=== PATIENT | male | born 1960 | race Caucasian/White ===

== ENCOUNTER 2024-07-01 15:10 | Inpatient (IN) | payer BC, SELFPAY ==
[2024-07-01] VITALS (12 sets, daily range): BP systolic 93–150; BP diastolic 68–96; BMI 26.1; BMI 25.6
--- NOTE | 2024-07-01 10:56 | ED.GENMED ---
History of Present Illness
General
Chief Complaint: Abdominal Pain
Time Seen by Provider: 07/01/24 10:44
History of Present Illness
History of Present Illness:
63-year-old male with history of Crohn's disease s/p bowel resection on Humira and history of diverticulitis presenting for lower abdominal pain. Patient reports symptoms have been ongoing for the past week, worsened in the past few days. He has
not had a bowel movement in 3 days. Reports history of a bowel perforation as well, and additional surgical history includes hernia repair. Denies fever, nausea, vomiting. Denies chest pain or difficulty breathing. He feels that his symptoms are
similar to prior episodes of diverticulitis. Denies additional acute medical complaints.
Phy Exam
Physical Exam
Physical Exam:
General: Well-appearing, no clinical signs of dehydration, nontoxic and in no acute distress
HEENT: protecting airway
Neck: appears supple
CV: Normal heart rate, regular rhythm, no evidence of cyanosis
Resp: No accessory muscle use, no increased work of breathing, lungs clear to auscultation bilaterally
Abd: Soft and non-distended, generalized tenderness to lower abdomen, right and left lower quadrant
Extremities: No deformities, no swelling, no erythema, pulses and sensation intact
Neuro: alert, no focal neurologic deficit
: deferred
Rectal: deferred
Psych: Normal affect
Skin: Intact
Course
Orders/Labs/Results
Orders:
Orders
07/01/24 10:56
CT Abd/pelvis W Iv Cont Urgent
Comment:
Reason For Exam: lower abd pain, hx divertic and crohns
Ketorolac [Toradol] 15 mg IV NOW STA
07/01/24 11:18
Complete Blood Count/With Diff Urgent
Comprehensive Metabolic Panel Urgent
Lactic Acid Urgent
Lipase Urgent
07/01/24 13:08
HYDROmorphone [Dilaudid] 1 mg IV NOW STA
07/01/24 13:42
Piperacillin/Tazo 4.5 Gram [Zosyn] 4.5 gram in 100 ml IV NOW
Abnormal Lab Results
07/01/24
11:18
WBC 12.8 H 10^3/uL
(4.8-10.8)
RBC 4.26 L 10^6/uL
(4.70-6.10)
MCH 33.6 H pg
(27.0-31.0)
Absolute Neuts (auto) 9.1 H 10^3/uL
(1.4-6.5)
Absolute Monos (auto) 0.7 H 10^3/uL
(0.1-0.6)
07/01/24 11:18
07/01/24 11:18
Vital Signs
Initial and Last Documented VS:
Initial Vital Signs
Temp Pulse Resp BP Pulse Ox
99.7 F 67 16 141/96 95
07/01/24 10:19 07/01/24 10:19 07/01/24 10:19 07/01/24 10:19 07/01/24 10:19
Last Documented Vital Signs
Temp Pulse Resp BP Pulse Ox
99.7 F 68 11 150/82 98
07/01/24 10:19 07/01/24 13:05 07/01/24 13:05 07/01/24 13:05 07/01/24 13:05
MDM/Problems Addressed
MDM/Problems Addressed:
63-year-old male with history of Crohn's disease on Humira and history of diverticulitis presenting for lower abdominal pain and constipation. Vital signs are normal.
On exam, patient is resting comfortably, no acute distress, nontoxic. Generalized tenderness to lower abdomen. Given patient's history, concern for acute bowel pathology such as acute diverticulitis versus Crohn's flare. For this reason we will
obtain laboratory analysis and CT abdominal imaging. Toradol administered for symptoms
13:50 -labs show leukocytosis, consistent with underlying infection. CT shows acute diverticulitis, consistent with symptoms. Patient in moderate pain, requiring IV pain medication. Patient does not feel given his present level of pain that he
can go home with his symptoms. For this reason, will plan for IV antibiotics and pain control. Patient agreeable to plan.
*Critical Care Note
Total Time (30-74mins, 75-104mins- exclusive of procedures): Not Applicable
ED Attending Note
-
Portions of this chart may have been created with voice recognition software.� Occasional wrong word or��sound alike� substitutions may have occurred due to the inherent limitations of voice recognition software.
Discharge Plan
Departure
Referrals:
Rochelle Velázquez, DO [Family Provider] -
Interventions
Interventions:
*Risk Screen - Suicide Last Done: 07/01/24 10:19
*General Assessment Last Done: 07/01/24 11:10
*Neglect/Abuse Screening Last Done: 07/01/24 10:19
ED- Fall Risk Assessment Last Done: 07/01/24 11:10
OV-Rhdipu-Zekikrsbce Assessment Last Done: 07/01/24 11:10
Discharge Date and Time
Print Language: IRISH
[2024-07-01] MEDS: TORADOL 15 MG IV (11:14)
[2024-07-01 11:29] LABS: % Basophils 0.4 % (0-2); % Eosinophils 1.4 % (0-6); % Immature Granulocytes 0.2 % (0-0.5); % Lymphocytes 21.3 % (20.5-51.1); % Monocytes 5.5 % (1.7-9.3); % Neutrophils 71.2 % (42.2-75.2); Absolute Basophils 0.1 10^3/uL (0-0.2); Absolute Eosinophils 0.2 10^3/uL (0-0.7); Absolute Lymphocytes 2.7 10^3/uL (1.2-3.4); Absolute Monocytes 0.7 10^3/uL (0.1-0.6); Absolute Neutrophils 9.1 10^3/uL (1.4-6.5); Hematocrit 39.5 % (39.0-52.0); Hemoglobin 14.3 g/dL (13.0-18.0); Mean Corp Hgb Conc. 36.2 g/dL (33.0-37.0); Mean Corpuscular Hgb 33.6 pg (27.0-31.0); Mean Corpuscular Volume 92.7 fL (80.0-94.0); Mean Platelet Volume 9.8 fL (7.4-10.4); Nucleated Red Blood Cells % 0 % (-); Platelet Count 398 10^3/uL (130-400); Red Blood Cell Count 4.26 10^6/uL (4.70-6.10); Red Cell Dist. Width 11.9 % (11.5-14.5); White Blood Cell Count 12.8 10^3/uL (4.8-10.8)
[2024-07-01 11:40] LABS: Lactic Acid 0.9 mmol/L (0.7-2.0)
[2024-07-01 11:41] LABS: ALT (SGPT) 31 U/L (0-50); AST (SGOT) 30 U/L (17-59); Albumin 4.4 g/dl (3.5-5.0); Alkaline Phosphatase 68 U/L (38-126); Blood Urea Nitrogen 9 mg/dl (9-20); Calcium 9.7 mg/dl (8.4-10.2); Carbon Dioxide 28 mmol/L (22-30); Chloride 99 mmol/L (98-107); Estimated Creatinine Clearance 86 ml/min; Glucose 96 mg/dl (70-99); Lipase 56 U/L (23-300); Potassium 3.6 mmol/L (3.5-5.1); Sodium 140 mmol/L (135-145); Total Bilirubin 0.5 mg/dl (0.2-1.3); Total Protein 7.5 g/dl (6.3-8.2); eGFR > 60.00
[2024-07-01] MEDS: DILAUDID 1 MG IV (13:11)
[2024-07-01] MEDS: ZOSYN 100 IV ×2 (14:07→19:57)
--- NOTE | 2024-07-01 14:39 | HPS.HSE ---
Family Physician
-
Family Physician: Rochelle Velázquez
Chief Complaint
-
Abdominal pain
History of Present Illness
63-year-old man with history of:
Crohn's disease s/p bowel resection on Humira
history of diverticulitis
presents with lower abdominal pain. He reports the symptoms have been ongoing for the past week, and have worsened in the past few days. He has not had a bowel movement in 3 days. He reports a history of a bowel perforation as well, and his
surgical history includes hernia repair. He denies fever, nausea, vomiting, chest pain or difficulty breathing. He feels that his symptoms are similar to prior episodes of diverticulitis. He denies additional acute medical complaints. In the ED,
after having had pain medicine, he felt much better, and was comfortable during my exam.
Medical History
Past Medical History
Past Medical History: Reports Other
Additional Past Medical History:
GERD
Diverticulitis
Chron's disease
Essential HTN
Past Surgical History: Reports Other
Additional Past Surgical History:
hernia surgery
Social History
Tobacco: Non-smoker
Alcohol: Daily
Drug: None
Personal:
Living: With Family
Family History
Family History: Not pertinent
Allergies / Home Medications
Allergies reflects when Allergies were last updated in [employer].
Home Medications with original date entered in [employer]
Allergy/Medication List:
Allergies
Allergy/AdvReac Type Severity Reaction Status Date / Time
No Known Allergies Allergy Unverified 07/01/24 10:19
Home Medications
acetaminophen 325 mg tablet 325 mg PO DAILYPRN PRN mild pain 07/01/24
adalimumab-ryvk 40 mg/0.4 mL subcutaneous auto-injector kit 40 mg SC MO 07/01/24
famotidine 20 mg tablet 20 mg PO HS 07/01/24
indapamide 2.5 mg tablet 2.5 mg PO HS 07/01/24
omeprazole 40 mg capsule,delayed release 40 mg PO HS 07/01/24
propranolol 10 mg tablet 10 mg PO DAILYPRN PRN tremors 07/01/24
psyllium 1 packet PO HSPRN PRN constipation 07/01/24
therapeutic multivitamin 1 tab PO DAILY 07/01/24
Review of Systems
-
History Source: Patient
A 12 point ROS was completed and negative except as noted: Yes
Physical Exam
Vital Signs
Vital Signs
Temp Pulse Resp BP Pulse Ox
98.4 F 69 16 136/75 98
07/01/24 14:00 07/01/24 14:00 07/01/24 14:00 07/01/24 14:00 07/01/24 14:00
Physical Exam
General: Well Developed, Well Nourished, No Apparent Distress, Comfortable and Conversant
HEENT: NormoCephalic, Moist mucous membranes, Nose Appears Normal and Ears Appear Normal
Respiratory: Clear
Cardiac: S1/S2 and Regular Rhythm
GI: Soft, Non Tender and Non Distended
Musculoskeletal: No Clubbing, No Cyanosis and No Edema
Skin: Warm and Dry; No Rash, Jaundice or Ulcers
Neuro: Awake, Alert, Oriented and AO x 3
Psych: Calm
Laboratory Results
-
07/01/24 11:18
07/01/24 11:18
Laboratory Results
Lactic Acid 0.9 mmol/L (0.7-2.0) 07/01/24 11:18
Total Bilirubin 0.5 mg/dl (0.2-1.3) 07/01/24 11:18
AST 30 U/L (17-59) 07/01/24 11:18
ALT 31 U/L (0-50) 07/01/24 11:18
Alkaline Phosphatase 68 U/L (38-126) 07/01/24 11:18
Lipase 56 U/L (23-300) 07/01/24 11:18
Data Reviewed
-
Lab Data: Labs Reviewed by me
Impression/Plan
-
IMPRESSION:
63 man with a h/o diverticulitis, her with symptoms c/w diverticulitis. CT and labs:
WBC 12.8
Limited in evaluation without oral contrast, thickening of the wall of the distal sigmoid colon with accompanying diverticulosis most likely representing acute diverticulitis.
No intestinal obstruction or free air.
PLAN:
1. Diverticulitis. No free air.
IV antibiotics
Sips of Clear liquids, otherwise NPO
Pain meds as required
2. Essential HTN
Continue home meds
Full code
VCD for DVTp
[2024-07-01] MEDS: NSS 1000 IV (16:25)
[2024-07-01] MEDS: TYLENOL 325 MG PO (16:25)
--- NOTE | 2024-07-01 16:57 | PTCARENOTE ---
pt arrived to floor from ED, walked to bed, alert and oriented x 3, present, vitals taken, pt stable
[2024-07-01] MEDS: DILAUDID 0.5 MG IV (20:00)
[2024-07-01] MEDS: PROTONIX 40 MG PO (21:12)
[2024-07-01] MEDS: LOZOL 2.5 MG PO (21:15)
[2024-07-01] MEDS: PEPCID 20 MG PO (21:16)
[2024-07-02] MEDS: ZOSYN 100 IV ×4 (02:14→21:25)
[2024-07-02] MEDS: NSS 1000 IV ×2 (03:58→14:37)
[2024-07-02] MEDS: DILAUDID 0.5 MG IV (03:58)
[2024-07-02 07:09] LABS: Hematocrit 35.1 % (39.0-52.0); Hemoglobin 12.4 g/dL (13.0-18.0); Mean Corp Hgb Conc. 35.3 g/dL (33.0-37.0); Mean Corpuscular Hgb 32.8 pg (27.0-31.0); Mean Corpuscular Volume 92.9 fL (80.0-94.0); Mean Platelet Volume 9.6 fL (7.4-10.4); Platelet Count 357 10^3/uL (130-400); Red Blood Cell Count 3.78 10^6/uL (4.70-6.10); Red Cell Dist. Width 11.9 % (11.5-14.5); White Blood Cell Count 8.2 10^3/uL (4.8-10.8)
[2024-07-02 07:30] LABS: Blood Urea Nitrogen 9 mg/dl (9-20); Calcium 8.6 mg/dl (8.4-10.2); Carbon Dioxide 26 mmol/L (22-30); Chloride 102 mmol/L (98-107); Estimated Creatinine Clearance 78 ml/min; Glucose 93 mg/dl (70-99); Potassium 3.4 mmol/L (3.5-5.1); Sodium 140 mmol/L (135-145); eGFR > 60.00
[2024-07-02 07:33] LABS: Magnesium 2.2 mg/dl (1.6-2.3)
[2024-07-02 07:50] VITALS: BP 115/74
[2024-07-02] MEDS: KCL 20 MEQ PO (09:34)
--- NOTE | 2024-07-02 13:05 | W.PN.HOSP.TC ---
Today's Communication/Plan
-
Monitor vital signs see plan
Pain control
Start clears
Continue with antibiotic
Replete potassium
Assessment / Plan
Assessment / Plan
General: Well Developed, Well Nourished, No Apparent Distress, Comfortable and Conversant
HEENT: NormoCephalic, Moist mucous membranes,
Respiratory: Clear
Cardiac: S1/S2 and Regular Rhythm
GI: Soft, Non Tender and Non Distended
Musculoskeletal:No Edema
Skin: Warm and Dry; No Rash, Jaundice or Ulcers
Neuro: Awake, Alert, Oriented and AO x 3
Psych: Calm
Acute diverticulitis
Continue with antibiotics
Currently feeling better, start clears
Pain control
Will need colonoscopy in 4 to 6 weeks, patient already has GI follow-up
Hypokalemia
Replete
History of Crohn's disease status with history of perforation status post surgery
On adalimumab
GERD
Essential hypertension
DVT prophylaxis
lovenox
Full code
Anticipated Discharge: Within 24 hours
Subjective/Interval History
-
Date of Service: July 02, 2024
mild pain
Objective Data
-
Labs:
Laboratory Results
07/02/24
06:39
WBC 8.2
Hgb 12.4 L
Hct 35.1 L
Plt Count 357
Sodium 140
Potassium 3.4 L
Chloride 102
Carbon Dioxide 26
BUN 9
Creatinine 1.0
Glucose 93
Calcium 8.6
Vital Signs:
Vital Signs
Temp Pulse Resp BP Pulse Ox
97.9 F 71 16 115/74 96
07/02/24 07:50 07/02/24 07:50 07/02/24 07:50 07/02/24 07:50 07/02/24 07:50
I&O
07/01/24 07/02/24 07/03/24
06:59 06:59 06:59
Intake Total 480 / 480
Balance 480 / 480
[2024-07-02 15:30] LABS: Hepatitis C Antibody Negative (Negative)
[2024-07-02 16:00] VITALS: BP 127/80
[2024-07-02] MEDS: LOVENOX 40 MG SC (17:24)
[2024-07-02] MEDS: NON-FORMULARY ITEM 40 MG SC (22:40)
[2024-07-02] MEDS: PROTONIX 40 MG PO (22:42)
[2024-07-02] MEDS: PEPCID 20 MG PO (22:42)
[2024-07-02] MEDS: LOZOL 2.5 MG PO (22:43)
[2024-07-02 23:03] VITALS: BP 127/84
[2024-07-03] MEDS: ZOSYN 100 IV ×4 (01:40→20:37)
[2024-07-03] MEDS: NSS 1000 IV ×3 (01:41→22:08)
[2024-07-03 08:03] VITALS: BP 115/77
[2024-07-03 08:47] LABS: Blood Urea Nitrogen 6 mg/dl (9-20); Calcium 8.9 mg/dl (8.4-10.2); Carbon Dioxide 25 mmol/L (22-30); Chloride 104 mmol/L (98-107); Estimated Creatinine Clearance 86 ml/min; Glucose 94 mg/dl (70-99); Potassium 3.9 mmol/L (3.5-5.1); Sodium 142 mmol/L (135-145); eGFR > 60.00
[2024-07-03 08:56] LABS: % Basophils 0.7 % (0-2); % Eosinophils 4.7 % (0-6); % Immature Granulocytes 0.2 % (0-0.5); % Lymphocytes 41.9 % (20.5-51.1); % Monocytes 9.2 % (1.7-9.3); % Neutrophils 43.3 % (42.2-75.2); Absolute Eosinophils 0.2 10^3/uL (0-0.7); Absolute Lymphocytes 1.9 10^3/uL (1.2-3.4); Absolute Monocytes 0.4 10^3/uL (0.1-0.6); Absolute Neutrophils 1.9 10^3/uL (1.4-6.5); Hematocrit 37.9 % (39.0-52.0); Hemoglobin 12.7 g/dL (13.0-18.0); Mean Corp Hgb Conc. 33.5 g/dL (33.0-37.0); Mean Corpuscular Hgb 32.4 pg (27.0-31.0); Mean Corpuscular Volume 96.7 fL (80.0-94.0); Mean Platelet Volume 9.6 fL (7.4-10.4); Nucleated Red Blood Cells % 0 % (-); Platelet Count 369 10^3/uL (130-400); Red Blood Cell Count 3.92 10^6/uL (4.70-6.10); White Blood Cell Count 4.5 10^3/uL (4.8-10.8)
--- NOTE | 2024-07-03 13:43 | W.PN.HOSP.TC ---
Today's Communication/Plan
-
Monitor vital signs
see plan
Advance diet to fulls
Continue antibiotics
Assessment / Plan
Assessment / Plan
General: Well Developed, Well Nourished, No Apparent Distress, Comfortable and Conversant
HEENT: NormoCephalic, Moist mucous membranes,
Respiratory: Clear
Cardiac: S1/S2 and Regular Rhythm
GI: Soft, Non Tender and Non Distended
Musculoskeletal:No Edema
Skin: Warm and Dry; No Rash, Jaundice or Ulcers
Neuro: Awake, Alert, Oriented and AO x 3
Psych: Calm
Acute diverticulitis
Continue with antibiotics
Currently feeling better, advance to fulls
Pain control
Will need colonoscopy in 4 to 6 weeks, patient already has GI follow-up
Hypokalemia
Replete
History of Crohn's disease status with history of perforation status post surgery
On adalimumab
GERD
Essential hypertension
DVT prophylaxis
lovenox
Full code
Anticipated Discharge: Within 24 hours
Subjective/Interval History
-
Date of Service: July 03, 2024
denies pain
Objective Data
-
Labs:
Laboratory Results
07/03/24
07:00
WBC 4.5 L
Hgb 12.7 L
Hct 37.9 L
Plt Count 369
Sodium 142
Potassium 3.9
Chloride 104
Carbon Dioxide 25
BUN 6 L
Creatinine 0.9
Glucose 94
Calcium 8.9
Vital Signs:
Vital Signs
Temp Pulse Resp BP Pulse Ox
97.8 F 64 17 115/77 97
07/03/24 08:03 07/03/24 08:03 07/03/24 08:03 07/03/24 08:03 07/03/24 08:03
I&O
07/02/24 07/03/24 07/04/24
06:59 06:59 06:59
Intake Total 2940 / 2940
Balance 2940 / 2940
[2024-07-03 15:05] VITALS: BP 119/76
--- NOTE | 2024-07-03 16:31 | CM ---
Reviewed chart, met with patient to obtain information for assessment. Patient stated that he lives with his in a two story home with two steps to enter. He described himself as independent with his ADLs, personal care, bathing and dressing. He
can do financial dealers, cooking, cleaning and laundry. He drives and can get himself to all of his appointments and does his own shopping. Patient is still employed.
He denied any DME at home.
He has had VN in the distant past through [employer].
He has not been to a SNF.
Patient has a prescription plan and uses, [facility] in [place] for all of his medications.
His PCP is, Rochelle eVlázquez.
Patient stated that functionally he feels that he is at baseline and does not think he will have any discharge needs.
Plan: Case management will continue to follow and assist with discharge planning. Home when stable.
[2024-07-03] MEDS: LOVENOX 40 MG SC (17:17)
[2024-07-03] MEDS: LOZOL 2.5 MG PO (22:05)
[2024-07-03] MEDS: PROTONIX 40 MG PO (22:09)
[2024-07-03] MEDS: PEPCID 20 MG PO (22:09)
[2024-07-03 23:00] VITALS: BP 132/79
[2024-07-04] MEDS: ZOSYN 100 IV ×2 (03:21→08:50)
[2024-07-04 07:37] VITALS: BP 128/70
[2024-07-04 07:47] LABS: % Basophils 1.2 % (0-2); % Eosinophils 4.7 % (0-6); % Lymphocytes 47.4 % (20.5-51.1); % Monocytes 9.2 % (1.7-9.3); % Neutrophils 37.5 % (42.2-75.2); Absolute Basophils 0.1 10^3/uL (0-0.2); Absolute Eosinophils 0.2 10^3/uL (0-0.7); Absolute Monocytes 0.4 10^3/uL (0.1-0.6); Absolute Neutrophils 1.6 10^3/uL (1.4-6.5); Hematocrit 38.2 % (39.0-52.0); Hemoglobin 13.2 g/dL (13.0-18.0); Mean Corp Hgb Conc. 34.6 g/dL (33.0-37.0); Mean Corpuscular Hgb 33.2 pg (27.0-31.0); Mean Platelet Volume 9.7 fL (7.4-10.4); Nucleated Red Blood Cells % 0 % (-); Platelet Count 380 10^3/uL (130-400); Red Blood Cell Count 3.98 10^6/uL (4.70-6.10); Red Cell Dist. Width 11.9 % (11.5-14.5); White Blood Cell Count 4.2 10^3/uL (4.8-10.8)
[2024-07-04 08:08] LABS: Blood Urea Nitrogen 6 mg/dl (9-20); Calcium 9.1 mg/dl (8.4-10.2); Carbon Dioxide 28 mmol/L (22-30); Chloride 105 mmol/L (98-107); Estimated Creatinine Clearance 71 ml/min; Glucose 99 mg/dl (70-99); Potassium 3.9 mmol/L (3.5-5.1); Sodium 142 mmol/L (135-145); eGFR > 60.00
[2024-07-04] MEDS: NSS 1000 IV (08:51)
--- NOTE | 2024-07-04 11:26 | W.PN.HOSP.TC ---
Today's Communication/Plan
-
Monitor vital signs see plan
Check EKG for QTc
Transition to p.o. antibiotics
Discharge today
Time of discharge 37 minutes
Assessment / Plan
Assessment / Plan
General: Well Developed, Well Nourished, No Apparent Distress, Comfortable and Conversant
HEENT: NormoCephalic, Moist mucous membranes,
Respiratory: Clear
Cardiac: S1/S2 and Regular Rhythm
GI: Soft, Non Tender and Non Distended
Musculoskeletal:No Edema
Skin: Warm and Dry; No Rash, Jaundice or Ulcers
Neuro: Awake, Alert, Oriented and AO x 3
Psych: Calm
Acute diverticulitis
Continue with antibiotics; check EKG for QTc, transition to p.o.
Not tolerating low res
Pain control
Will need colonoscopy in 4 to 6 weeks, patient already has GI follow-up
Hypokalemia
resolved
History of Crohn's disease status with history of perforation status post surgery
On adalimumab
GERD
Essential hypertension
DVT prophylaxis
lovenox
Full code
Anticipated Discharge: Today
Subjective/Interval History
-
Date of Service: July 04, 2024
Denies pain
Objective Data
-
Labs:
Laboratory Results
07/04/24
07:10
WBC 4.2 L
Hgb 13.2
Hct 38.2 L
Plt Count 380
Sodium 142
Potassium 3.9
Chloride 105
Carbon Dioxide 28
BUN 6 L
Creatinine 1.1
Glucose 99
Calcium 9.1
Vital Signs:
Vital Signs
Temp Pulse Resp BP Pulse Ox
97.9 F 59 17 128/70 95
07/04/24 07:37 07/04/24 07:37 07/04/24 07:37 07/04/24 07:37 07/04/24 07:37
I&O
07/03/24 07/04/24 07/05/24
06:59 06:59 06:59
Intake Total 2940 / 2940 700 / 700
Balance 2940 / 2940 700 / 700
--- NOTE | 2024-07-04 11:38 | W.DCSUMMARY ---
Discharge Summary
Discharge Data
Date of Admission: 07/01/24
Date of Discharge: 07/04/24
-
Pending Results: No
Hospital Course
63-year-old male with past medical history of GERD, Crohn's disease, essential hypertension came to the hospital with acute diverticulitis. Patient was initially started on IV antibiotic which were later transitioned to p.o. antibiotics prior to
discharge. Patient was able to tolerate low residue diet prior to discharge. He was instructed to follow-up closely with GI outpatient for colonoscopy. Since he was able to tolerate diet and was feeling better, he was then discharged home with
instructions to follow-up with all his other physicians outpatient.
Discharge Plan
-
Patient Disposition: Home (Routine Discharge)
Discharge Diagnosis/Procedures: Acute diverticulitis
Hypokalemia
Diet: Low Residue
Activity: As tolerated
Driving Restrictions: As prior to admission
Bathing Restrictions: None
Activity Restrictions/Additional Instructions:
Follow-up with gastroenterology in 4 to 6 weeks for colonoscopy
Referrals:
Rochelle Velázquez, DO [Family Provider] - in less than 1 week
Prescriptions:
New
ciprofloxacin HCl [Cipro] 500 mg tablet
500 mg PO BID Qty: 14 0RF
metronidazole 500 mg tablet
500 mg PO Q8H 7 Days Qty: 21 0RF
Continued
omeprazole 40 mg Capsule,Delayed Release(Dr/Ec)
40 mg PO HS
acetaminophen 325 mg Tablet
325 mg PO DAILYPRN PRN (Reason: mild pain)
indapamide 2.5 mg Tablet
2.5 mg PO HS
psyllium Packet
1 packet PO HSPRN PRN (Reason: constipation)
therapeutic multivitamin Tablet
1 tab PO DAILY
propranolol 10 mg Tablet
10 mg PO DAILYPRN PRN (Reason: tremors)
famotidine 20 mg Tablet
20 mg PO HS
adalimumab-ryvk 40 mg/0.4 mL Auto-Injector, Kit
40 mg SC WEEKLY
Discharge Orders:
Discharge Patient (As Directed); Ordered 07/04/24
Ordered By: Reinaldo Mccallum
Discharge Date and Time
Discharge Date/Time: 07/04/24 13:43
Print Language: SPANISH
[2024-07-04] MEDS: AFLURIA (36 mos+) 2024-2025 FORMULA 0.5 ML IM (12:12)
--- NOTE | 2024-07-04 13:54 | CM ---
Reviewed chart, patient medically cleared for discharge. Patient signed IMM. Now on chart. Patient confirmed that his is coming to transport him home.
Plan: Case management will continue to follow and assist with discharge planning. Home no needs.
== END 2024-07-04 13:43 | disposition home or self-care (01) | DRG 392 ==
LOC: 3 WEST ACU 15:10
PROVIDERS: ADMITTING PHYSICIAN Internal Medicine; ATTENDING PHYSICIAN Internal Medicine; EMERGENCY PHYSICIAN Student in an Organized Health Care Education/Training Program; FAMILY PHYSICIAN Family Medicine
PROC: 3E02340 Introduction of Influenza Vaccine into Muscle, Percutaneous Approach (ICD-10-PCS; 2024-07-04)
DX: K57.32 Diverticulitis of large intestine without perforation or abscess without bleeding (principal); K50.90 Crohn's disease, unspecified, without complications; E87.6 Hypokalemia; Z90.49 Acquired absence of other specified parts of digestive tract; Z87.19 Personal history of other diseases of the digestive system; K21.9 Gastro-esophageal reflux disease without esophagitis; I10 Essential (primary) hypertension; K59.00 Constipation, unspecified; Z23 Encounter for immunization
CPT/HCPCS: 74177; 80048; 80053; 83605; 83690; 83735; 85025; 85027; 86803; 90686; 93005; 96365; 96375; 99285; G0008; Q9967

== ENCOUNTER → 2025-01-15 10:38 | Outpatient (REF) | payer BC, SELFPAY | LOC: HWRAD 10:38 | PROVIDERS: ATTENDING PHYSICIAN Internal Medicine Pulmonary Disease; FAMILY PHYSICIAN Family Medicine | DX: R05.9 Cough, unspecified (principal) | CPT/HCPCS: 71046 ==

== ENCOUNTER → 2025-02-25 13:07 | Outpatient (REF) | payer BC, SELFPAY | LOC: RAD 13:07 | PROVIDERS: ATTENDING PHYSICIAN Nurse Practitioner Family | DX: E04.1 Nontoxic single thyroid nodule (principal) | CPT/HCPCS: 76536 ==

== ENCOUNTER 2025-03-30 08:45 | Emergency (ER) | payer BC, SELFPAY ==
[2025-03-30 08:55] VITALS: BP 140/85
[2025-03-30 09:46] VITALS: BMI 25.5
--- NOTE | 2025-03-30 09:57 | ED.GENMED ---
History of Present Illness
General
Chief Complaint: Abdominal Pain
Source: patient
Exam Limitations: none
Time Seen by Provider: 03/30/25 09:46
Nursing documentation reviewed up to this point in time: agreed with
History of Present Illness
History of Present Illness:
Patient is a 64-year-old male with history of hypertension, diverticulitis who presents to the emergency department with lower abdominal pain. Patient states he has noticed somewhat intermittent pain over the past 2 weeks however had acute
worsening yesterday afternoon and describes a sharp, stabbing pain across his entire lower abdomen. Pain kept him up throughout the night last night. He did take Tylenol yesterday early in the day with only minimal relief in symptoms. Patient
states pain is 8/10 in severity currently.
Patient reports nausea however denies any episodes of vomiting. He denies any dysuria or hematuria. No diarrhea/constipation. No fever, chills.
Patient was admitted to the hospital in 07/24 with an episode of diverticulitis which she states feels very similar to the symptoms.
Review of Systems
Review of Systems
Allergies reviewed?: Yes
All Other Systems: ROS reviewed and negative except as documented in HPI and ROS
Phy Exam
Physical Exam
Physical Exam:
Vitals: Mildly hypertensive, otherwise vital signs stable. Afebrile
General: Patient is uncomfortable appearing due to pain
Skin: Warm and dry, no rashes or lesions
Head: Normocephalic, atraumatic
Eyes: Sclera nonicteric.
Throat: Protecting airway
Neck: Normal ROM, no cervical spine tenderness, no meningismus
Cardiac: Regular rate and rhythm, no murmurs.
Pulm: Normal respiratory effort, no wheezes, rales, rhonchi heard on exam
.
Abdomen: Abdomen soft. Moderate tenderness across lower abdomen with voluntary guarding. No CVA tenderness.
Extremities: No evidence of cyanosis or edema
Neuro: AAOx3. Grossly intact.
Psychiatric: Normal affect.
Course
Orders/Labs/Results
Orders:
Orders
03/30/25 09:53
CT Abd/pelvis W Iv Cont Urgent
Comment:
Reason For Exam: lower abdominal pain, hx divertic
0.9% Sodium Chloride 1000 ml [Nss] 1,000 ml IV BOLUS
HYDROmorphone [Dilaudid] 0.5 mg IV NOW STA
03/30/25 09:57
Ondansetron Injectable [Zofran] 4 mg .ROUTE .STK-MED ONE
03/30/25 09:58
Ondansetron Injectable [Zofran] 4 mg IV NOW STA
03/30/25 10:06
Complete Blood Count/With Diff Urgent
Comprehensive Metabolic Panel Urgent
03/30/25 11:03
Urinalysis Reflex To Culture Urgent
Date Specimen was Collected: 03/30/25
Time Specimen was Collected: 10:57
Urine Microscopic Reflex Cult Urgent
03/30/25 11:46
Amoxicillin 875 mg/Clav 125 mg [Augmentin 875 mg/125 mg] 1 tablet PO NOW STA
Abnormal Lab Results
03/30/25 03/30/25
10:06 11:03
WBC 13.3 H 10^3/uL
(4.8-10.8)
RBC 4.22 L 10^6/uL
(4.70-6.10)
Hct 38.9 L %
(39.0-52.0)
MCH 32.7 H pg
(27.0-31.0)
Absolute Neuts (auto) 10.1 H 10^3/uL
(1.4-6.5)
Absolute Monos (auto) 1.0 H 10^3/uL
(0.1-0.6)
Neutrophils % 76.1 H %
(42.2-75.2)
Lymphocytes % 14.6 L %
(20.5-51.1)
BUN 8 L mg/dl
(9-20)
Glucose 109 H mg/dl
(70-99)
Urine Albumin (Reflex) 1+ A
(Neg - Trace)
03/30/25 10:06
03/30/25 10:06
Vital Signs
Initial and Last Documented VS:
Initial Vital Signs
Temp Pulse Resp BP Pulse Ox
98.5 F 77 18 140/85 98
03/30/25 08:55 03/30/25 08:55 03/30/25 08:55 03/30/25 08:55 03/30/25 08:55
Last Documented Vital Signs
Temp Pulse Resp BP Pulse Ox
98.5 F 64 12 151/96 78
03/30/25 08:55 03/30/25 10:11 03/30/25 10:11 03/30/25 11:00 03/30/25 11:00
MDM/Problems Addressed
Differential Diagnosis Includes:
Not limited to: Diverticulitis, bowel perforation, intra-abdominal abscess, cystitis/pyelonephritis, renal colic, etc.
MDM/Problems Addressed:
64 year-old male presenting with one day of lower abdominal pain, feels similar to prior diverticulitis flares. No fevers, vomiting, changes in bowel habits, or urinary symptoms. Vitals and physical exam as above.
Differential dx includes diverticulitis, complicated diverticulitis including bowel perforation, or intra-abdominal abscess, appendicitis, etc.
ED plan: Labs, UA, CT scan abdomen/pelvis w/ IV contrast. Will treat pain, give IV fluids and reassess.
Update: labs reveal mild leukocytosis, otherwise no clinically significant abnormalities. UA does not appear infected. CT scan shows findings consistent with severe diverticulitis of sigmoid colon however, no evidence of perforation or abscess.
I did reassess patient at bedside who states pain has improved. He feels this level of pain is manageable at home. Given patient is afebrile without imaging findings of complications and pain well controlled � I do feel discharge home on oral
anabiotics is in a reasonable option. He does not meet sepsis criteria. I did offer admission for pain control however patient feels comfortable with discharge home.
Will start patient on course of Augmentin, advise clear liquid diet followed by low fiber, and pain management. Strict return precautions discussed including any signs of worsening infection or intractable pain. Patient will follow up with his PCP
as well as [facility] doctor.
Chronic conditions affecting care:
History of diverticulitis
Acute Exacerbation and/or Progression of Chronic Illness:
Acute sigmoid diverticulitis
*Radiology
Radiology exam reviewed: radiology read reviewed
*Pulse Oximetry
SaO2: 98
Oxygen Mode of Delivery: Room air
Patient hypoxic: no
*EKG
Interpreted by ED Provider?: NA
*Fish Drier Interpretation
Rate: Fish Drier- N/A
*Critical Care Note
Total Time (30-74mins, 75-104mins- exclusive of procedures): Not Applicable
ED Attending Note
-
Portions of this chart may have been created with voice recognition software.� Occasional wrong word or��sound alike� substitutions may have occurred due to the inherent limitations of voice recognition software.
Discharge Plan
Departure
Patient Disposition: Home (Routine Discharge)
Date of Disposition: 03/30/25
Time of Disposition: 11:47
Patient with high blood pressure during this ER visit?: Yes
Condition: Good
Discharge Problem:
Acute diverticulitis
Instructions: Clear Liquid Diet, Diverticulitis (DC), Low-fiber diet, BLOOD PRESSURE
Prescriptions:
New
amoxicillin-pot clavulanate 875-125 mg tablet
1 tab PO BID 10 Days Qty: 20 0RF
oxycodone-acetaminophen [Percocet] 5-325 mg tablet
1 tab PO Q8H PRN (Reason: Pain) Qty: 7 0RF
No Action
omeprazole 40 mg Capsule,Delayed Release(Dr/Ec)
40 mg PO HS
acetaminophen 325 mg Tablet
325 mg PO DAILYPRN PRN (Reason: mild pain)
indapamide 2.5 mg Tablet
2.5 mg PO HS
psyllium Packet
1 packet PO HSPRN PRN (Reason: constipation)
therapeutic multivitamin Tablet
1 tab PO DAILY
propranolol 10 mg Tablet
10 mg PO DAILYPRN PRN (Reason: tremors)
famotidine 20 mg Tablet
20 mg PO HS
adalimumab-ryvk 40 mg/0.4 mL Auto-Injector, Kit
40 mg SC WEEKLY
ciprofloxacin HCl [Cipro] 500 mg tablet
500 mg PO BID Qty: 14 0RF
metronidazole 500 mg tablet
500 mg PO Q8H 7 Days Qty: 21 0RF
Referrals:
UNKNOWN - PT DOES,NOT KNOW [Family Provider]
Activity Restrictions/Additional Instructions:
RETURN TO THE EMERGENCY DEPARTMENT WITH ANY FEVERS, PERSISTENT/WORSENING ABDOMINAL PAIN, INTRACTABLE NAUSEA/VOMITING, WORSENING IN CURRENT SYMPTOMS, OR ANY OTHER CONCERNS
- As discussed�your CT scan showed severe diverticulitis of your sigmoid colon. Your white blood cell count was mildly elevated.
- A prescription for antibiotics was sent to your pharmacy. Please take this twice a day for the next 10 days. I would recommend Tylenol and/or Motrin as needed for pain. I also sent a prescription for Percocet which you can take for intractable
pain. Please consider that there is Tylenol and Percocet to ensure they do not exceed the daily limit.
- I would recommend a clear liquid diet over the next few days and slowly advance to low fiber.
- Follow-up with your primary care provider and GI doctor for further evaluation/management and to ensure that your symptoms improve
Monitor your symptoms closely and return to the emergency department with any acute worsening/new symptoms or any signs of worsening infection
Interventions
Interventions:
*Risk Screen - Suicide Last Done: 03/30/25 08:55
*General Assessment Last Done: 03/30/25 09:47
*Neglect/Abuse Screening Last Done: 03/30/25 08:55
*ED- Fall Risk Assessment Last Done: 03/30/25 09:47
*ED COVID-19 Vaccine History Last Done: 03/30/25 09:47
*Nursing Disposition Last Done: 03/30/25 11:50
JJ-Jtckgf-Bzuehyxhar Assessment Last Done: 03/30/25 10:11
Discharge Date and Time
Discharge Date/Time: 03/30/25 11:55
Print Language: PORTUGUESE
[2025-03-30 10:03] VITALS: BP 145/74
[2025-03-30] MEDS: DILAUDID 0.5 MG IV (10:04)
[2025-03-30] MEDS: ZOFRAN 4 MG IV (10:04)
[2025-03-30] MEDS: NSS 1000 IV (10:04)
[2025-03-30 10:16] LABS: Hematocrit 38.9 % (39.0-52.0); Hemoglobin 13.8 g/dL (13.0-18.0); Mean Corp Hgb Conc. 35.5 g/dL (33.0-37.0); Mean Corpuscular Volume 92.2 fL (80.0-94.0); Nucleated Red Blood Cells % 0 % (-); Platelet Count 344 10^3/uL (130-400); Red Cell Dist. Width 12.2 % (11.5-14.5)
[2025-03-30 10:33] LABS: ALT (SGPT) 26 U/L (0-50); AST (SGOT) 27 U/L (17-59); Albumin 4.5 g/dl (3.5-5.0); Alkaline Phosphatase 56 U/L (38-126); Blood Urea Nitrogen 8 mg/dl (9-20); Calcium 9.5 mg/dl (8.4-10.2); Carbon Dioxide 25 mmol/L (22-30); Chloride 104 mmol/L (98-107); Estimated Creatinine Clearance 111 ml/min; Glucose 109 mg/dl (70-99); Potassium 3.9 mmol/L (3.5-5.1); Sodium 137 mmol/L (135-145); Total Protein 7.6 g/dl (6.3-8.2); eGFR > 60.00
[2025-03-30 11:00] VITALS: BP 151/96
--- NOTE | 2025-03-30 11:08 | EDRN ---
POX 78 documentation is a computer error- sats are 98%on RA
[2025-03-30 11:49] LABS: Urine Character Clear (Clear)
[2025-03-30] MEDS: AUGMENTIN 875 MG/125 MG 1 TABLET PO (11:54)
[2025-03-30 13:14] LABS: Urine Red Blood Cell 0-2 /HPF (0-2); Urine Squamous Cell 0-2 /LPF (Few); Urine White Cell 0-2 /HPF (0-5)
== END 2025-03-30 11:55 | disposition home or self-care (01) ==
LOC: EMR 08:45
PROVIDERS: Physician Assistant; EMERGENCY PHYSICIAN Emergency Medicine
DX: K57.32 Diverticulitis of large intestine without perforation or abscess without bleeding (principal); I10 Essential (primary) hypertension
CPT/HCPCS: 99284; 96374; 96375; 96361; 74177; 80053; 81003; 81015; 85025; Q9967